=== PATIENT | female | born 1990 | race American Indian/Alaskan Native ===

== ENCOUNTER 2023-09-09 09:04 | Day surgery (SDC) | payer OTHER ==
[~2023-09-09] VITALS: Ht 160 cm; Wt 72.7 kg
[~2023-09-09 09:04] MED LIST: CIPRO500 MG PO; IBLOOD GLUCOSE TEST STRIP 1 EA TEST VI PRN; LACTATED RINGER'S 1,000 ML IV SCH; LEVOTHYROXINE100 MC2 PO; LIDOCAINE HCL 1% 5 ML SDV INJ ONE; MOTRIN IB200 MG PO; TYLENOL EXTRA500 MG PO
[2023-09-09 09:33] VITALS: BP 114/69
[2023-09-09] MEDS ORDERED: LORATADINE10 MG PO (09:37)
[2023-09-09] MEDS ORDERED: FLUTICASONE PRO16 GM NAS (09:38)
[2023-09-09] MEDS ORDERED: ondansetron HCL 4 MG/2 ML VIAL ONE (10:25)
[2023-09-09] MEDS ORDERED: ACETAMINOPHEN 1,000 MG/100 ML VIAL ONE (10:25)
[2023-09-09] MEDS ORDERED: LIDOCAINE HCL 2% 5 ML SDV ONE (10:25)
[2023-09-09] MEDS ORDERED: KETOROLAC TROMETHAMINE 30 MG/ML VIAL ONE (10:25)
[2023-09-09] MEDS ORDERED: fentaNYL citrate 100 MCG/2 ML VIAL ONE (10:25)
[2023-09-09] MEDS ORDERED: DEXAMETHASONE SOD PHOS 4 MG/ML VIAL ONE (10:25)
[2023-09-09] MEDS ORDERED: propofoL 200 MG/20 ML VIAL ONE (10:25)
[2023-09-09] MEDS ORDERED: NALOXONE HCL 0.4 MG SYR IV PRN ×2 (11:00→12:15)
[2023-09-09] MEDS ORDERED: IBLOOD GLUCOSE TEST STRIP 1 EA TEST VI PRN (11:00)
[2023-09-09] MEDS ORDERED: fentaNYL citrate 50 MCG/ML SDV IV PRN (11:00)
[2023-09-09] MEDS ORDERED: ondansetron HCL 4 MG/2 ML VIAL IV PRN ×2 (11:00→12:15)
[2023-09-09] MEDS ORDERED: droPERidol 5 MG/2 ML VIAL IV PRN (11:00)
--- NOTE | 2023-09-09 11:54 | NUR ---
09/09/23 1154 Cee Begum 1129 PT ARRIVED IN PACU WIDE [facility] AND TALKING TO STAFF. 1140 PT'S RX GIVEN TO HER MOTHER TO DROP OFF AT [facility] TO BE FILLED. NO C/O'S. 1150 RESTING. REU.
[2023-09-09 12:05] VITALS: BP 115/74
--- NOTE | 2023-09-09 12:08 | NUR ---
1200 PT ARRIVED TO DAY SURGERY VIA STRECHER FROM PACU. PT AWAKE AND ORIENTED. PT BREATHING EQUAL AND UNLABORED. NO DRAINAGE FROM SURGICAL SITE. PT REPORTS 1/10 DISCOMFORT BUT TOLERABLE. NO NAUSEA REPORTED. PT HAS CALL LIGHT AND BED IS LOW AND LOCKED.
[2023-09-09] MEDS ORDERED: SIMETHICONE 125 MG TABLET CHEWABLE PO PRN (12:15)
[2023-09-09] MEDS ORDERED: MAGNESIUM HYDROXIDE/AL HYDROX 30 ML CUP PO PRN (12:15)
[2023-09-09] MEDS ORDERED: MORPHINE SULFATE 10 MG/ML VIAL IV PRN (12:15)
[2023-09-09] MEDS ORDERED: FAMOTIDINE 20 MG/ 2 ML VIAL IV PRN (12:15)
[2023-09-09] MEDS ORDERED: METOCLOPRAMIDE HCL 10 MG/2 ML SDV IV PRN (12:15)
[2023-09-09] MEDS ORDERED: OXYCODONE/APAP 5/325 TAB PO PRN (12:15)
--- NOTE | 2023-09-09 12:20 | NUR ---
1215 PT HAS WATER AND CRACKERS AT BEDSIDE. PT HAS CALL LIGHT WITHIN REACH.
[2023-09-09] MEDS ORDERED: SIMETHICONE 125 MG TABLET CHEWABLE PO SCH (13:00)
[2023-09-09 13:01] VITALS: BP 128/84
--- NOTE | 2023-09-09 13:06 | NUR ---
1455 PT ABLE TO AMBULATE TO BATHROOM AND VOID 200 MLS 1300 HOURLY ROUNDING DONE, VITALS TAKEN, PAIN 1/10 TOLERABLE LEVEL.
--- NOTE | 2023-09-09 13:31 | NUR ---
1210 DISCHARGE INFORMATION GONE OVER WITH PT AND MOM AT BEDSIDE. PT AND FAMILY HAVE NO FURTHER QUESTIONS AT THIS TIME. 1220 IV DISCONTINUED 1223 DISCHARGE PT FROM DAY SURGERY VIA WHEELCHAIR TO FRONT OF THE HOSPITAL TO PT'S MOTHERS CAR.
--- NOTE | 2023-09-15 21:55 | OR ---
[facility] [address], [place] [address] Signed DATE OF OPERATION: 09/15/2023 SURGEON: Nicole Feng DO PREOPERATIVE DIAGNOSES: 1. Cervical intraepithelial neoplasia 2. 2. History of prior loop electrosurgical excision procedure. POSTOPERATIVE DIAGNOSES: 1. Cervical intraepithelial neoplasia 2. 2. History of prior loop electrosurgical excision procedure. PROCEDURES PERFORMED: Cold knife conization of the cervix. ANESTHESIA: General. ESTIMATED BLOOD LOSS: 70 mL. SPECIMEN: 1. Cone biopsy of the cervix marked with suture at 12 o'clock. 2. Endocervical curettage packing Gelfoam in the bed of cone biopsy. FINDINGS: Normal external genitalia, vagina and cervix. No new lesions noted. Cone biopsy included all squamous columnar junction of most of the endocervical canal. Hemostasis at the end of procedure. COMPLICATIONS: None. INDICATIONS: Ms. Spears is a very pleasant 33-year-old female with a history of abnormal Pap smears and prior LEEP procedure. The patient has completed fertility. Most recent biopsy demonstrated CIN2. She was consented for excisional procedure and recommended cold knife conization of the cervix. Risks, benefits, and alternatives were discussed in detail with the patient. The patient understands and wished to proceed with the procedure. Electronically Signed By: NICOLE FENG DO (JD) 09/15/23 2155 PATIENT NAME: DAVID SPEARS OPERATIVE REPORT DATE OF : 86 REPORT #: [id number] PHYSICIAN: NICOLE FENG) PCP: [facility] REPORT IS CONFIDENTIAL AND NOT TO BE RELEASED WITHOUT AUTHORIZATION [facility] [address], [place] [address] Signed TECHNIQUE: The patient was taken to the OR. A time-out was performed to confirm correct patient and correct procedure. General anesthesia was adequately established. The patient was prepped and draped in the dorsal lithotomy position with feet in Yellofin stirrups. ICPs were on and running. No preoperative antibiotics or heparin was indicated. Acetic acid was applied to the cervix followed by Lugol solution and no new lesions were noted. Clear demarcation of the squamocolumnar junction was appreciated. A Hegar dilator was gently inserted into the cervical os and advanced to the internal os to provide orientation of the cervical canal. An 11 blade was used to lightly score the cervical face just lateral to the squamocolumnar junction circumferentially. An angled 11 blade was then used to complete conizations of the cervix. The cone was then removed and marked at 12 o'clock with a permanent suture. Stay sutures were placed at 3 and 9 o'clock of 0 chromic. The cervix was then curettaged for an endocervical curettage using a Kevorkian. The bed of the cone biopsy was then made hemostatic with ball cautery and Monsel's solution. Gelfoam was then packed into the bed of cervical biopsy and stay sutures were tied. Excellent hemostasis was appreciated. The patient was then taken to PACU in good and stable condition. Sponge, needle, and instrument counts were correct x2 at the end of the procedure. DO MARISA Myers/MODL /[id number] Copies: ~ Electronically Signed By: NICOLE FENG DO (JD) 09/15/23 2155 PATIENT NAME: DAVID SPEARS YESSI OPERATIVE REPORT DATE OF : 86 REPORT #: [id number] PHYSICIAN: NICOLE FENG DO (JD) PCP: [facility] REPORT IS CONFIDENTIAL AND NOT TO BE RELEASED WITHOUT AUTHORIZATION
== END 2023-09-09 13:23 | disposition home or self-care (01) ==
LOC: OPS 09:04 → DS 09:04 → OPS 12:00
PROVIDERS: ATTEND Obstetrics & Gynecology
PROC: 0UBC7ZZ Excision of Cervix, Via Natural or Artificial Opening (ICD-10-PCS; principal; 2023-09-09 12:30)
DX: N87.1 Moderate cervical dysplasia (principal); E03.9 Hypothyroidism, unspecified; F17.200 Nicotine dependence, unspecified, uncomplicated; Z88.8 Allergy status to other drugs, medicaments and biological substances
CPT/HCPCS: 00940; 84703; 88305; 88307; J0131; J1100; J1885; J2001; J2405; J2704; J3010; J7121